=== PATIENT | male | born 1985 | race Caucasian/White ===

== ENCOUNTER 2018-05-11 19:20 | Emergency (ER) | payer OTHER ==
[~2018-05-11 19:20] MED LIST: CARB15DR37 EACH EAR; CHOL100052 PO
--- NOTE | 2018-05-11 19:30 | ER Report ---
History and Physical Time Seen By MD: 19:30 Hx. of Stated Complaint: BLEEDING FROM RIGHT EAR SINCE WEDNESDAY HPI/ROS CHIEF COMPLAINT: Blood coming from right ear HISTORY OF PRESENT ILLNESS: 32-year-old male patient presents to emergency room with complaint of blood coming from right ear. Patient states that this been going on since Wednesday. He states he's not had any pain in the ER, however he has had significant amount of pressure to the right side of his head and face. Patient states he is not having a cough, fever or chills. Patient states he does have a history of chronic ear infections and has had a rupture of the left tympanic membrane which required a tympanoplasty. Patient states that his been fine for the past few years, however that he does have continual ear infections in that ear. Allergies: Coded Allergies: Penicillins (Verified Allergy, Intermediate, 06/13/14) Home Meds Active Scripts Ofloxacin (OFLOXACIN) 5 Ml Drops, 10 GTT OT DAILY, #1 BOTTLE Prov:EDU HANNA [facility] 05/11/18 Cefdinir 300 Mg Cap (OMNICEF 300 MG CAP (OR EQUIV)) 300 Mg Cap, 300 MG PO BID, #14 CAP Prov:EDU HANNA [facility] 05/11/18 Reported Medications Carbamide Peroxide (EAR DROPS) 15 Ml Soln, 15 ML EACH EAR 06/13/14 Cholecalciferol (Vitamin D3) (VITAMIN D) 1,000 Unit Tablet, 1000 UNIT PO QDAY 06/13/14 Past Medical/Surgical History Patient has a past medical history of tinnitus, nosebleed with memory loss, bipolar, chronic otitis media. Patient has surgical history of ear surgery, tonsillectomy. Reviewed Nurses Notes: Yes Hx Smoking: Yes Smoking Status: Current: Every Day Smoker Hx Substance Use Disorder: No Hx Alcohol Use: No Constitutional Vital Sign - Last 24 Hours 05/11/18 05/11/18 19:27 20:00 Temp 99.7 Pulse 85 88 Resp 18 16 B/P (MAP) 146/93 132/83 (99) Pulse Ox 96 95 O2 Delivery Room Air Room Air Physical Exam General Appearance: The patient is alert, has no immediate need for airway protection and no current signs of toxicity. ENT: Left tympanic membrane is red and erythematous, right tympanic membrane is pearly-portillo, however does appear that he has a rupture at approximately 6:00. There is drainage noted in the right ear canal, auditory canals are patent, mixed membranes are moist. Patient does have tenderness to left maxillary sinus Respiratory: Chest is non tender, lungs are clear to auscultation. Cardiac: regular rate and rhythm Gastrointestinal: Abdomen is soft and non tender, no masses, bowel sounds normal. Musculoskeletal: Neck: Neck is supple and non tender. DIFFERENTIAL DIAGNOSIS: After history and physical exam differential diagnosis was considered for otitis media, otitis media with perforation, sinusitis Medical Decision Making ED Course/Re-evaluation ED Course Patient was admitted to an exam room, history and physical were obtained. Differential diagnoses were considered. On examination lungs are clear, heart is regular, abdomen is soft and nontender. Patient does have what appears to be a ruptured tympanic membrane with a hole located at 6:00 in the right tympanic membrane. (Membrane is erythematous. Patient does have pain to palpation of the left frontal sinus. I believe is why he is having some much pain. We will go ahead and treat him with Omnicef, 300 mg twice a day as well as on Floxin otic to the right tympanic membrane. I discussed with patient who verbalized understanding and agreement with plan. With his history of eardrum perforation that required a tympanoplasty I will have him follow-up with Dr. Treadwell. Patient was given the information to Dr. Treadwell. Patient will be excused from work for 3 days. Decision to Disposition Date: May 11, 2018 Decision to Disposition Time: 20:12 Depart Departure Latest Vital Signs Vital Signs Date Time Temp Pulse Resp B/P (MAP) Pulse Ox O2 Delivery O2 Flow Rate FiO2 05/11/18 20:00 88 16 132/83 (99) 95 Room Air 05/11/18 19:27 99.7 Impression: Primary Impression: Tympanic membrane rupture Additional Impressions: Otitis media Sinusitis Condition: Improved Disposition: HOME OR SELF-CARE Referrals: PAULIE TREADWELL JR, MD New Scripts Ofloxacin (OFLOXACIN) 5 Ml Drops 10 GTT OT DAILY, #1 BOTTLE Prov: EDU HANNA 05/11/18 Cefdinir 300 Mg Cap (OMNICEF 300 MG CAP (OR EQUIV)) 300 Mg Cap 300 MG PO BID, #14 CAP Prov: EDU HANNA 05/11/18 Departure Forms: ER Transition Record, Medications Reconciliation, Off Wo rk/School Form, School or Work Release?: Work Number of days to be released: 3 Patient Portal Information Patient Instructions: Ruptured Eardrum (ED) Additional Instructions: Take the antibiotics as directed. Call Dr. Treadwell's office tomorrow to make an appointment. Return to the ER if condition worsens. Limit activity by pain. Take over the counter decongestant of choice. Don't clean ear with hydrogen peroxide. Problem Qualifiers Primary Impression: Tympanic membrane rupture Laterality: right Qualified Codes: H72.91 - Unspecified perforation of tympanic membrane, right ear Additional Impressions: Otitis media Otitis media type: suppurative Chronicity: acute Laterality: left Recurrence: non-recurrent Spontaneous tympanic membrane rupture: without spontaneous rupture Qualified Codes: H66.002 - Acute suppurative otitis media without spontaneous rupture of ear drum, left ear Sinusitis Sinusitis location: frontal Chronicity: acute Recurrence: non-recurrent Qualified Codes: J01.10 - Acute frontal sinusitis, unspecified EDU HANNA May 11, 2018 19:30
[2018-05-11 20:00] VITALS: BP 132/83
[2018-05-11] MEDS ORDERED: CEF300 PO (20:11)
[2018-05-11] MEDS ORDERED: OFLO5DRO45 OT (20:11)
== END 2018-05-11 20:15 | disposition home or self-care (01) ==
LOC: EDBD 19:20 → ER 19:48
DX: H72.91 Unspecified perforation of tympanic membrane, right ear (principal); H66.002 Acute suppurative otitis media without spontaneous rupture of ear drum, left ear; J01.10 Acute frontal sinusitis, unspecified
CPT/HCPCS: 99282